=== PATIENT | female | born 1990 | race Caucasian/White ===

== ENCOUNTER 2018-07-10 22:20 | Observation (INO) ==
--- NOTE | 2018-07-11 00:01 | Event Note ---
Date of Encounter: 07/11/18 Time of Encounter: 00:00 Patient not assessed by CNM; patient had difficulty breathing per RN report upon presentation to floor with +FHTs and a normal SPO2. Returned to ED for evaluation.
== END 2018-07-10 22:27 | disposition other institution (70) ==
LOC: 1NENULAB
PROVIDERS: ADMIT Advanced Practice Midwife; ATTEND Advanced Practice Midwife